=== PATIENT | female | born 1985 ===

== ENCOUNTER → 2020-06-02 | Outpatient (CLI) | payer OTHER ==
[~2020-06-02] MED LIST: BUPR100 PO; IRON TD; VITAMIN D TD; Zoloft100 MG PO
== END | disposition home or self-care (01) ==
LOC: PLD 15:46 → LAB SHORT 15:46
DX: D22.5 Melanocytic nevi of trunk (principal); L90.5 Scar conditions and fibrosis of skin
CPT/HCPCS: 88305

== ENCOUNTER → 2023-11-28 | Outpatient (CLI) | payer OTHER | LOC: LAB 16:00 → LAB SHORT 16:00 | DX: K21.9 Gastro-esophageal reflux disease without esophagitis (principal); R19.8 Other specified symptoms and signs involving the digestive system and abdomen | CPT/HCPCS: 87338 ==